=== PATIENT | male | born 1970 | race African-American/Black ===

== ENCOUNTER 2021-02-16 08:02 | Inpatient (IN) | payer BC, MEDICAID ==
[~2021-02-16] VITALS: Ht 188 cm; Wt 102.2 kg
[2021-02-16] MEDS ORDERED: SODIUM CHLORIDE 0.9% 1,000 ML IV ONE ×3 (08:15→12:15)
[2021-02-16] MEDS ORDERED: diphenhdrAMINE HCL 50 MG/1 ML VL IV ONE (08:15)
[2021-02-16] MEDS ORDERED: LORazepam 2MG/ML-1ML VIAL IV ONE ×2 (08:15→10:00)
[2021-02-16] MEDS ORDERED: HALOPERIDOL LACTATE 5 MG/ML INJ VIAL ONE (08:26)
[2021-02-16] MEDS ORDERED: HALOPERIDOL LACTATE 5 MG/ML INJ VIAL IM ONE (09:15)
[2021-02-16 11:00] LABS: Hematocrit 42.6 % (41.0-53.0); Hemoglobin 14.2 g/dL (13.5-17.5); Mean Corpuscular Hemoglobin 29.7 pg (28.0-32.0); Mean Corpuscular Hgb Conc. 33.2 g/dL (32.0-36.0); Mean Corpuscular Volume 89.5 fL (80.0-100.0); Platelet Count (auto) 281 10^3/uL (140-450); Red Blood Cells 4.77 10^6/uL (4.5-5.90); Red Cell Distribution Width 13.5 % (11.8-14.3)
[2021-02-16 11:03] LABS: Basophils % (manual) 0 (0.0-2.0); Blast Cells 0; Eosinophils % (manual) 0 (0-7); Metamyelocytes % 0; Myelocytes % 0; Promyelocytes % 0; Reactive Lymphocytes 0
[2021-02-16 11:17] LABS: Albumin 4.4 g/dL (3.4-5.0); Calcium 9.4 mg/dL (8.5-10.1); Magnesium 2.4 mg/dL (1.6-2.6); Potassium 3.9 mmol/L (3.5-5.1)
[2021-02-16 11:24] LABS: BUN/Creatinine Ratio 10.2; Bilirubin, Total 0.5 mg/dL (0.2-1.0)
[2021-02-16] MEDS ORDERED: cefTRIAXone 1GM/50ML D5W 50 ML IV ONE (12:15)
[2021-02-16] MEDS ORDERED: ENOXAPARIN SOD 120 MG/0.8 ML SYRINGE SC ONE (12:15)
[2021-02-16 13:33] LABS: Urine Bacteria NONE SEEN /hpf (None Seen); Urine Blood 3+ /uL (Negative); Urine Specific Gravity 1.011 (1.001-1.035); Urine WBC 1 /hpf (0 - 3)
[2021-02-16 13:39] LABS: Alcohol, Urine < 3.0 mg/dL (0-10); Amphetamine Screen, Urine NEGATIVE (NEGATIVE); Barbiturate Scree,Urine NEGATIVE (NEGATIVE); Benzodiazephine Screen, Urine POSITIVE (NEGATIVE); Cannabinoid Screen, Urine POSITIVE (NEGATIVE); Cocaine Screen, Urine NEGATIVE (NEGATIVE); Opiate Scree,Urine NEGATIVE (NEGATIVE); Phencyclidine Screen, Urine NEGATIVE (NEGATIVE)
[2021-02-16] MEDS ORDERED: MORPHINE SULF INJ 2 MG/ML SYRINGE 1ML IV PRN (14:00)
[2021-02-16] MEDS ORDERED: LORazepam 2MG/ML-1ML VIAL IV PRN (14:00)
[2021-02-16] MEDS ORDERED: TETANUS-DIPTH-ACEL PERTUSSIS 0.5ML SYR Tdap IM ONE (14:00)
[2021-02-16] MEDS ORDERED: ONDANSETRON HCL 4 MG/2 ML VIAL IV PRN (14:00)
[2021-02-16] MEDS ORDERED: NITROGLYCERIN 0.4 MG SL TAB SL PRN (14:00)
[2021-02-16] MEDS ORDERED: DEXTROSE (50%) 50ML SYRG IV PRN (14:00)
[2021-02-16 14:47] LABS: Band Neutrophils % (manual) 6; Lymphocytes % (manual) 3 (10.0-50.0); Monocytes % (manual) 4 (0-12)
[2021-02-16] MEDS: SODIUM CHLORIDE 0.9% 1,000 ML IV SCH ×3 (15:21→23:51)
[2021-02-16] MEDS: ACCU-CHEK COMFORT CURVE STRIP VI SCH (18:37)
[2021-02-16] MEDS: InsuLIN REG 1unit/0.01ml Soln (100units/ml) SC SCH (19:01)
[2021-02-16 20:52] VITALS: BP 159/89
[2021-02-16] MEDS: LABETALOL HCL 5 MG/ML 4ML SYRINGE IV PRN (21:31)
[2021-02-16] MEDS: ATORVASTATIN 20 MG TAB PO SCH (21:44)
[2021-02-16] MEDS: METOPROLOL TARTRATE 25 MG TAB PO SCH (21:44)
[2021-02-16] MEDS: INSULIN LANTUS (GLARGINE) 1 /0.01ml (100units/ml) SC SCH (21:44)
[2021-02-16 22:00] VITALS: BP 159/89
[2021-02-17] MEDS: ACCU-CHEK COMFORT CURVE STRIP VI SCH ×2 (00:22→05:21)
[2021-02-17 01:03] LABS: Potassium 3.8 mmol/L (3.5-5.1)
[2021-02-17] MEDS: LORazepam 0.5 MG TAB PO PRN ×2 (04:42→17:15)
[2021-02-17] MEDS: SODIUM CHLORIDE 0.9% 1,000 ML IV SCH ×4 (04:43→19:57)
[2021-02-17 05:23] LABS: Basophils # (auto) 0.1 10 ^3/uL (0-0.2); Basophils % (auto) 0.7 % (0.0-2.0); Eosinophils # (auto) 0.1 10 ^3/uL (0-0.8); Eosinophils % (auto) 0.7 % (0.0-7.0); Hematocrit 42.5 % (41.0-53.0); Hemoglobin 14.4 g/dL (13.5-17.5); Lymphocytes # (auto) 2.2 10 ^3/uL (0.4-5.4); Lymphocytes % (auto) 26.1 % (10.0-50.0); Mean Corpuscular Hemoglobin 30.1 pg (28.0-32.0); Mean Corpuscular Hgb Conc. 33.8 g/dL (32.0-36.0); Monocytes # (auto) 0.7 10 ^3/uL (0-1.3); Monocytes % (auto) 8.4 % (0.0-12.0); Neutrophils # (auto) 5.5 10 ^3/uL (1.6-8.6); Neutrophils % (auto) 64.1 % (37.0-80.0); Nucleated Red Blood Cells % 0.2 %; Platelet Count (auto) 277 10^3/uL (140-450); Red Blood Cells 4.77 10^6/uL (4.5-5.90); Red Cell Distribution Width 13.6 % (11.8-14.3); White Blood Cell 8.5 10^3/uL (4.4-10.8)
[2021-02-17] MEDS: InsuLIN REG 1unit/0.01ml Soln (100units/ml) SC SCH ×2 (05:30)
[2021-02-17 05:35] LABS: INR 1.04 (0.9-1.15)
[2021-02-17 05:43] LABS: Potassium 3.8 mmol/L (3.5-5.1)
[2021-02-17] MEDS: LABETALOL HCL 5 MG/ML 4ML SYRINGE IV PRN ×3 (05:46→21:23)
[2021-02-17 05:52] LABS: Albumin 4.1 g/dL (3.4-5.0); Bilirubin, Total 1.1 mg/dL (0.2-1.0); Calcium 9.2 mg/dL (8.5-10.1); Total Protein 7.7 g/dL (6.4-8.2)
[2021-02-17 09:00] VITALS: BP 194/129
[2021-02-17] MEDS: METOPROLOL TARTRATE 25 MG TAB PO SCH (09:46)
[2021-02-17] MEDS: PANTOPRAZOLE 40 MG/10 ML VIAL INJ IV SCH (09:47)
[2021-02-17] MEDS ORDERED: LISI-646 PO (10:15)
[2021-02-17] MEDS ORDERED: CHOL20007 OR (10:15)
[2021-02-17] MEDS ORDERED: SITA50TA PO (10:15)
[2021-02-17] MEDS ORDERED: METF-370 PO (10:15)
[2021-02-17] MEDS ORDERED: TERA2CAP45 PO (10:15)
[2021-02-17] MEDS ORDERED: METOPROLOL TARTRATE 50 MG TAB PO ONE (11:45)
[2021-02-17] MEDS ORDERED: LISINOPRIL 20 MG TAB PO ONE (11:45)
[2021-02-17 13:00] VITALS: BP 170/129
[2021-02-17 17:00] VITALS: BP 182/123
[2021-02-17] MEDS: metFORMIN HYDROCHLORIDE 500 MG TAB PO SCH (17:14)
[2021-02-17] MEDS: ATORVASTATIN 20 MG TAB PO SCH (21:21)
[2021-02-17] MEDS: METOPROLOL TARTRATE 50 MG TAB PO SCH (21:22)
[2021-02-17] MEDS: INSULIN LANTUS (GLARGINE) 1 /0.01ml (100units/ml) SC SCH (21:36)
[2021-02-17 22:08] VITALS: BP 157/115
[2021-02-18] MEDS: SODIUM CHLORIDE 0.9% 1,000 ML IV SCH ×5 (01:00→21:00)
[2021-02-18] MEDS: MORPHINE SULFATE 4 MG/ML SYR/VIAL IV PRN (04:36)
[2021-02-18 05:11] VITALS: BP 165/115
[2021-02-18] MEDS: metFORMIN HYDROCHLORIDE 500 MG TAB PO SCH ×2 (08:47→17:53)
[2021-02-18] MEDS: PANTOPRAZOLE 40 MG/10 ML VIAL INJ IV SCH (08:47)
[2021-02-18] MEDS: METOPROLOL TARTRATE 50 MG TAB PO SCH ×3 (08:48→21:30)
[2021-02-18] MEDS: LISINOPRIL 20 MG TAB PO SCH (08:48)
[2021-02-18 09:00] VITALS: BP 198/104
[2021-02-18] MEDS: LORazepam 0.5 MG TAB PO PRN (10:40)
[2021-02-18 13:00] VITALS: BP 162/99
[2021-02-18] MEDS ORDERED: AMOX-277 PO (14:21)
[2021-02-18 17:00] VITALS: BP 159/107
[2021-02-18] MEDS ORDERED: LORazepam 2MG/ML-1ML VIAL IV PRN (21:00)
[2021-02-18] MEDS: ATORVASTATIN 20 MG TAB PO SCH (21:28)
[2021-02-18 21:30] VITALS: BP 155/127
[2021-02-18] MEDS: INSULIN LANTUS (GLARGINE) 1 /0.01ml (100units/ml) SC SCH (21:30)
[2021-02-18] MEDS: TEMAZEPAM 15 MG CAP PO PRN (21:31)
[2021-02-18] MEDS: ACETAMINOPHEN 325 MG TAB PO PRN (21:31)
[2021-02-19] MEDS: SODIUM CHLORIDE 0.9% 1,000 ML IV SCH ×5 (02:00→22:00)
[2021-02-19] MEDS: LORazepam 0.5 MG TAB PO PRN (02:47)
[2021-02-19 05:00] VITALS: BP 138/98
[2021-02-19 07:26] LABS: Cholesterol 181 mg/dL (< 200); HDL Cholesterol 44 mg/dL (40-59); LDL Cholesterol 127 mg/dL (< 100); Triglycerides 116 mg/dL (< 150)
[2021-02-19] MEDS: metFORMIN HYDROCHLORIDE 500 MG TAB PO SCH ×2 (08:01→18:55)
[2021-02-19 08:05] VITALS: BP 163/113
[2021-02-19 08:40] VITALS: BP 163/113
[2021-02-19] MEDS: PANTOPRAZOLE 40 MG/10 ML VIAL INJ IV SCH (10:01)
[2021-02-19] MEDS: METOPROLOL TARTRATE 50 MG TAB PO SCH ×2 (10:02→22:05)
[2021-02-19] MEDS: LISINOPRIL 20 MG TAB PO SCH (10:02)
[2021-02-19 12:40] VITALS: BP 162/115
[2021-02-19 15:04] VITALS: BP 162/115
[2021-02-19] MEDS: LABETALOL HCL 5 MG/ML 4ML SYRINGE IV PRN (16:08)
[2021-02-19 17:00] VITALS: BP 165/125
[2021-02-19] MEDS: ATORVASTATIN 20 MG TAB PO SCH (21:52)
[2021-02-19] MEDS: INSULIN LANTUS (GLARGINE) 1 /0.01ml (100units/ml) SC SCH (22:00)
[2021-02-19] MEDS: TEMAZEPAM 15 MG CAP PO PRN (22:05)
[2021-02-20] MEDS: SODIUM CHLORIDE 0.9% 1,000 ML IV SCH ×5 (03:00→23:00)
[2021-02-20] MEDS: LORazepam 0.5 MG TAB PO PRN ×2 (04:22→13:37)
[2021-02-20 05:32] VITALS: BP 134/89
[2021-02-20 08:30] VITALS: BP 159/96
[2021-02-20] MEDS: metFORMIN HYDROCHLORIDE 500 MG TAB PO SCH ×2 (08:46→18:45)
[2021-02-20 09:00] VITALS: BP 159/96
[2021-02-20] MEDS: PANTOPRAZOLE 40 MG/10 ML VIAL INJ IV SCH (10:15)
[2021-02-20] MEDS: METOPROLOL TARTRATE 50 MG TAB PO SCH ×2 (10:16→22:07)
[2021-02-20] MEDS: LISINOPRIL 20 MG TAB PO SCH (10:16)
[2021-02-20 13:00] VITALS: BP 161/97
[2021-02-20] MEDS: LABETALOL HCL 5 MG/ML 4ML SYRINGE IV PRN (13:37)
[2021-02-20 17:00] VITALS: BP 155/110
[2021-02-20 22:00] VITALS: BP 150/108
[2021-02-20] MEDS: INSULIN LANTUS (GLARGINE) 1 /0.01ml (100units/ml) SC SCH (22:00)
[2021-02-20] MEDS: ATORVASTATIN 20 MG TAB PO SCH (22:06)
[2021-02-20] MEDS: MORPHINE SULFATE 4 MG/ML SYR/VIAL IV PRN (22:08)
[2021-02-20] MEDS: TEMAZEPAM 15 MG CAP PO PRN (22:20)
[2021-02-20] MEDS: ACETAMINOPHEN 325 MG TAB PO PRN (22:20)
[2021-02-21] MEDS: SODIUM CHLORIDE 0.9% 1,000 ML IV SCH ×2 (03:36→08:00)
[2021-02-21 05:29] VITALS: BP 133/87
[2021-02-21 08:00] VITALS: BP 124/84
[2021-02-21] MEDS: metFORMIN HYDROCHLORIDE 500 MG TAB PO SCH (08:00)
[2021-02-21 09:00] VITALS: BP 124/84
[2021-02-21] MEDS: METOPROLOL TARTRATE 50 MG TAB PO SCH (09:52)
[2021-02-21] MEDS: PANTOPRAZOLE 40 MG/10 ML VIAL INJ IV SCH (09:52)
[2021-02-21] MEDS: LISINOPRIL 20 MG TAB PO SCH (09:52)
[2021-02-21 11:08] VITALS: BP 124/84
[2021-02-21 12:49] VITALS: BP 125/94
== END 2021-02-21 12:56 | disposition home or self-care (01) | DRG 100 ==
LOC: ER 08:02 → EDBD 08:02 → OVERFLOW 14:00 → EAST 20:52 → TELE-EAST 02-20 19:42
PROVIDERS: ADMIT Family Medicine; ATTEND Family Medicine
DX: G40.201 Localization-related (focal) (partial) symptomatic epilepsy and epileptic syndromes with complex partial seizures, not intractable, with status epilepticus (principal); G93.41 Metabolic encephalopathy; I21.A1 Myocardial infarction type 2; I50.21 Acute systolic (congestive) heart failure; E11.65 Type 2 diabetes mellitus with hyperglycemia; D72.829 Elevated white blood cell count, unspecified; E66.9 Obesity, unspecified; E78.5 Hyperlipidemia, unspecified; Z20.822 Contact with and (suspected) exposure to COVID-19; F17.200 Nicotine dependence, unspecified, uncomplicated; F41.9 Anxiety disorder, unspecified; G89.29 Other chronic pain; M79.641 Pain in right hand; G47.33 Obstructive sleep apnea (adult) (pediatric); F40.240 Claustrophobia; I11.0 Hypertensive heart disease with heart failure; G47.10 Hypersomnia, unspecified; I25.5 Ischemic cardiomyopathy; M19.90 Unspecified osteoarthritis, unspecified site; N40.0 Benign prostatic hyperplasia without lower urinary tract symptoms; Z79.84 Long term (current) use of oral hypoglycemic drugs; Z79.899 Other long term (current) drug therapy; Z82.3 Family history of stroke; Z82.49 Family history of ischemic heart disease and other diseases of the circulatory system; Z83.3 Family history of diabetes mellitus; Z68.30 Body mass index [BMI] 30.0-30.9, adult
CPT/HCPCS: 36415; 70450; 70551; 71045; 73120; 80051; 80053; 80061; 80307; 81001; 82962; 83036; 83735; 83880; 84443; 84484; 85007; 85025; 85027; 85610; 87081; 87426; 90471; 90715; 93005; 93306; 95819; 96365; 96367; 96372; 96375; 96376; 99291; C9113; G0378; J0696; J1815; J3490; J7060

== ENCOUNTER 2022-02-06 08:27 | Inpatient (IN) | payer BC ==
[~2022-02-06] VITALS: Ht 188 cm; Wt 103.1 kg
[~2022-02-06 08:27] MED LIST: AMOX-277 PO; CHOL20007 OR; LISI20TA28 PO; METF-370 PO; SITA50TA PO; TERA2CAP45 PO
[2022-02-06] MEDS ORDERED: ONDANSETRON HCL 4 MG/2 ML VIAL ONE (09:40)
[2022-02-06] MEDS ORDERED: SODIUM CHLORIDE 0.9% 1,000 ML IV ONE (09:45)
[2022-02-06] MEDS ORDERED: HYDROmorphone HCL 2 MG/ML VL IV ONE (09:45)
[2022-02-06] MEDS ORDERED: ONDANSETRON ODT 4 MG TAB PO ONE (09:45)
[2022-02-06] MEDS ORDERED: LORazepam 2MG/ML-1ML VIAL ONE ×2 (09:49→14:56)
[2022-02-06] MEDS ORDERED: LORazepam 2MG/ML-1ML VIAL IV ONE ×2 (10:00→15:00)
[2022-02-06 10:14] LABS: Urine Bacteria NONE SEEN /hpf (None Seen); Urine Blood Negative /uL (Negative); Urine Mucus FEW (None Seen); Urine Specific Gravity 1.031 (1.001-1.035); Urine WBC 2 /hpf (0 - 3)
[2022-02-06 10:29] LABS: Alcohol, Urine < 3.0 mg/dL (0-10); Amphetamine Screen, Urine NEGATIVE (NEGATIVE); Barbiturate Scree,Urine NEGATIVE (NEGATIVE); Benzodiazephine Screen, Urine NEGATIVE (NEGATIVE); Cannabinoid Screen, Urine POSITIVE (NEGATIVE); Cocaine Screen, Urine NEGATIVE (NEGATIVE); Opiate Scree,Urine NEGATIVE (NEGATIVE); Phencyclidine Screen, Urine NEGATIVE (NEGATIVE)
[2022-02-06 10:43] LABS: Basophils # (auto) 0.1 10 ^3/uL (0-0.2); Basophils % (auto) 1.2 % (0.0-2.0); Eosinophils # (auto) 0 10 ^3/uL (0-0.8); Hematocrit 42.2 % (41.0-53.0); Hemoglobin 14.2 g/dL (13.5-17.5); Lymphocytes # (auto) 0.9 10 ^3/uL (0.4-5.4); Lymphocytes % (auto) 12.5 % (10.0-50.0); Mean Corpuscular Hemoglobin 30.2 pg (28.0-32.0); Mean Corpuscular Hgb Conc. 33.6 g/dL (32.0-36.0); Mean Corpuscular Volume 90.1 fL (80.0-100.0); Monocytes # (auto) 0.2 10 ^3/uL (0-1.3); Monocytes % (auto) 3.3 % (0.0-12.0); Neutrophils # (auto) 5.8 10 ^3/uL (1.6-8.6); Nucleated Red Blood Cells % 0.1 %; Red Blood Cells 4.68 10^6/uL (4.5-5.90); Red Cell Distribution Width 13.2 % (11.8-14.3); White Blood Cell 6.9 10^3/uL (4.4-10.8)
[2022-02-06 10:56] LABS: Albumin 4.3 g/dL (3.4-5.0); BUN/Creatinine Ratio 10.5; Calcium 9.6 mg/dL (8.5-10.1); Potassium 4.8 mmol/L (3.5-5.1)
[2022-02-06 11:00] LABS: Bilirubin, Total 0.4 mg/dL (0.2-1.0); Total Protein 8.6 g/dL (6.4-8.2)
[2022-02-06 11:02] LABS: INR 1.02 (0.9-1.15); Partial Thromboplastin Time 25.9 sec (23.6-33.0)
[2022-02-06] MEDS ORDERED: MORPHINE SULFATE 4 MG/ML SYR/VIAL IV PRN (14:15)
[2022-02-06] MEDS ORDERED: LORazepam 2MG/ML-1ML VIAL IV PRN (14:15)
[2022-02-06] MEDS ORDERED: ONDANSETRON HCL 4 MG/2 ML VIAL IV PRN (14:15)
[2022-02-06] MEDS ORDERED: DEXTROSE (50%) 50ML SYRG IV PRN (14:15)
[2022-02-06] MEDS: ACCU-CHEK COMFORT CURVE STRIP VI SCH ×2 (17:25→22:22)
[2022-02-06] MEDS: InsuLIN REG 1unit/0.01ml Soln (100units/ml) SC SCH ×3 (17:33→22:23)
[2022-02-06] MEDS ORDERED: hydrALAZINE HCL 20 MG/ML VL IV PRN (18:00)
[2022-02-06] MEDS ORDERED: VALP250C3 PO (19:09)
[2022-02-06 19:45] VITALS: BP 179/126
[2022-02-06 21:49] VITALS: BP 179/126
[2022-02-06] MEDS ORDERED: TEMAZEPAM 15 MG CAP PO PRN (22:00)
[2022-02-06] MEDS: OXcarbazepine 300 MG TAB PO SCH (22:21)
[2022-02-07 04:49] VITALS: BP 155/94
[2022-02-07 05:28] LABS: Basophils # (auto) 0 10 ^3/uL (0-0.2); Basophils % (auto) 0.4 % (0.0-2.0); Eosinophils # (auto) 0 10 ^3/uL (0-0.8); Eosinophils % (auto) 0.3 % (0.0-7.0); Hematocrit 39.3 % (41.0-53.0); Hemoglobin 13.4 g/dL (13.5-17.5); Lymphocytes # (auto) 1.9 10 ^3/uL (0.4-5.4); Lymphocytes % (auto) 24.7 % (10.0-50.0); Mean Corpuscular Hemoglobin 30.5 pg (28.0-32.0); Mean Corpuscular Hgb Conc. 34.1 g/dL (32.0-36.0); Mean Corpuscular Volume 89.4 fL (80.0-100.0); Monocytes # (auto) 0.8 10 ^3/uL (0-1.3); Monocytes % (auto) 10.4 % (0.0-12.0); Neutrophils # (auto) 4.9 10 ^3/uL (1.6-8.6); Neutrophils % (auto) 64.2 % (37.0-80.0); Red Cell Distribution Width 13.5 % (11.8-14.3); White Blood Cell 7.6 10^3/uL (4.4-10.8)
[2022-02-07 05:30] LABS: Albumin 3.8 g/dL (3.4-5.0); Calcium 9.4 mg/dL (8.5-10.1); Potassium 3.9 mmol/L (3.5-5.1)
[2022-02-07 05:32] LABS: BUN/Creatinine Ratio 12.1
[2022-02-07 05:35] LABS: Bilirubin, Total 0.5 mg/dL (0.2-1.0); Total Protein 7.4 g/dL (6.4-8.2)
[2022-02-07] MEDS ORDERED: ACETAMINOPHEN 325 MG TAB PO PRN (06:30)
[2022-02-07] MEDS: ACCU-CHEK COMFORT CURVE STRIP VI SCH ×2 (06:36→11:46)
[2022-02-07] MEDS: InsuLIN REG 1unit/0.01ml Soln (100units/ml) SC SCH ×2 (06:37→11:46)
[2022-02-07 09:00] VITALS: BP 181/114
[2022-02-07] MEDS: OXcarbazepine 300 MG TAB PO SCH (09:40)
[2022-02-07] MEDS ORDERED: LISINOPRIL 20 MG TAB PO SCH (10:00)
[2022-02-07] MEDS ORDERED: ENOXAPARIN SOD 40 MG/0.4 ML SYRINGE SC SCH (10:00)
[2022-02-07] MEDS ORDERED: OXCA600T3 PO (12:11)
[2022-02-07] MEDS ORDERED: cloNIDine HCL 0.1 MG TAB PO ONE (12:15)
[2022-02-07 13:00] VITALS: BP 0/0
[2022-02-07] MEDS ORDERED: dilTIAZem 25 MG/5 ML VIAL IV ONE (14:45)
[2022-02-07 15:54] VITALS: BP 153/113
== END 2022-02-07 16:30 | disposition home or self-care (01) | DRG 101 ==
LOC: ER 08:27 → TELE 14:11 → TELE-EAST 18:30
PROVIDERS: ADMIT Registered Nurse; ATTEND Family Medicine
DX: G40.209 Localization-related (focal) (partial) symptomatic epilepsy and epileptic syndromes with complex partial seizures, not intractable, without status epilepticus (principal); I67.4 Hypertensive encephalopathy; G40.409 Other generalized epilepsy and epileptic syndromes, not intractable, without status epilepticus; E11.65 Type 2 diabetes mellitus with hyperglycemia; N18.2 Chronic kidney disease, stage 2 (mild); G47.10 Hypersomnia, unspecified; E11.22 Type 2 diabetes mellitus with diabetic chronic kidney disease; E66.9 Obesity, unspecified; F12.90 Cannabis use, unspecified, uncomplicated; I12.9 Hypertensive chronic kidney disease with stage 1 through stage 4 chronic kidney disease, or unspecified chronic kidney disease; Z53.29 Procedure and treatment not carried out because of patient's decision for other reasons; Z79.899 Other long term (current) drug therapy; Z82.3 Family history of stroke; Z83.3 Family history of diabetes mellitus; Z82.49 Family history of ischemic heart disease and other diseases of the circulatory system; Z20.822 Contact with and (suspected) exposure to COVID-19
CPT/HCPCS: 36415; 70450; 71045; 80053; 80164; 80307; 81001; 82542; 82962; 83036; 83735; 84443; 85025; 85610; 85730; 93005; 93306; 93886; 96361; 96374; 96375; G0378; J1815; J2405; J7060